=== PATIENT | female | born 1955 | race Two or more races ===

== ENCOUNTER → 2017-10-25 | Outpatient (CLI) | payer OTHER ==
[~2017-10-25] VITALS: Ht 152.4 cm; Wt 77.1 kg
== END | disposition home or self-care (01) ==
LOC: PPHC 10:35
DX: R09.81 Nasal congestion (principal)

== ENCOUNTER 2018-01-28 12:23 | Outpatient (CLI) | payer OTHER ==
[~2018-01-28] VITALS: Ht 157.5 cm; Wt 77.1 kg
== END 2018-01-28 12:45 | disposition home or self-care (01) ==
LOC: OFIC 805 12:23
DX: H72.2X1 Other marginal perforations of tympanic membrane, right ear (principal)

== ENCOUNTER 2018-02-10 11:30 | Outpatient (CLI) | payer OTHER ==
[~2018-02-10] VITALS: Ht 152.4 cm; Wt 77.1 kg
== END 2018-02-10 11:45 | disposition home or self-care (01) ==
LOC: OFIC 805 11:30
DX: H72.01 Central perforation of tympanic membrane, right ear (principal)

== ENCOUNTER 2018-02-14 08:09 | Outpatient (CLI) | payer OTHER ==
[~2018-02-14] VITALS: Ht 152.4 cm; Wt 77.1 kg
== END 2018-02-14 08:20 | disposition home or self-care (01) ==
LOC: OFIC 805 08:09
DX: H72.2X1 Other marginal perforations of tympanic membrane, right ear (principal); R51 Headache; R09.81 Nasal congestion

== ENCOUNTER 2018-10-13 08:39 | Outpatient (CLI) | payer OTHER | END 2018-10-13 16:24 | disposition home or self-care (01) | LOC: LAB 08:39 | DX: R77.1 Abnormality of globulin (principal); E03.8 Other specified hypothyroidism; N39.0 Urinary tract infection, site not specified ==

== ENCOUNTER → 2018-12-19 09:57 | Outpatient (CLI) | payer OTHER | END | disposition home or self-care (01) | LOC: LAB 09:57 | DX: C90.00 Multiple myeloma not having achieved remission (principal); D47.2 Monoclonal gammopathy ==

== ENCOUNTER 2019-01-15 09:16 | Outpatient (CLI) | payer OTHER | END 2019-01-15 14:50 | disposition home or self-care (01) | LOC: MAMO-SONO 09:16 | DX: D47.2 Monoclonal gammopathy (principal); Z12.31 Encounter for screening mammogram for malignant neoplasm of breast; N63.10 Unspecified lump in the right breast, unspecified quadrant; N63.20 Unspecified lump in the left breast, unspecified quadrant ==

== ENCOUNTER → 2019-01-22 | Outpatient (CLI) | payer OTHER | END | disposition home or self-care (01) | LOC: MRI 01-16 15:40 | DX: D47.2 Monoclonal gammopathy (principal); M25.562 Pain in left knee; M25.561 Pain in right knee | CPT/HCPCS: 73721 ==

== ENCOUNTER → 2019-01-23 | Outpatient (CLI) | payer OTHER | END | disposition home or self-care (01) | LOC: NUCLEAR 11:00 | DX: M81.0 Age-related osteoporosis without current pathological fracture (principal) ==

== ENCOUNTER 2019-01-29 08:24 | Outpatient (CLI) | payer OTHER | END 2019-01-29 11:21 | disposition home or self-care (01) | LOC: SONOGRAMA 08:24 | DX: D47.2 Monoclonal gammopathy (principal) ==

== ENCOUNTER 2019-01-31 11:05 | Outpatient (CLI) | payer OTHER | END 2019-01-31 11:06 | disposition home or self-care (01) | LOC: LAB 11:05 | DX: E03.8 Other specified hypothyroidism (principal); I10 Essential (primary) hypertension; Z12.11 Encounter for screening for malignant neoplasm of colon; E83.51 Hypocalcemia; E78.49 Other hyperlipidemia; E06.3 Autoimmune thyroiditis; D47.2 Monoclonal gammopathy; D50.8 Other iron deficiency anemias; D51.8 Other vitamin B12 deficiency anemias; K90.89 Other intestinal malabsorption; D51.1 Vitamin B12 deficiency anemia due to selective vitamin B12 malabsorption with proteinuria ==

== ENCOUNTER 2019-02-04 10:58 | Outpatient (CLI) | payer OTHER | END 2019-02-04 15:00 | disposition home or self-care (01) | LOC: LAB 10:58 | DX: E03.8 Other specified hypothyroidism (principal); I10 Essential (primary) hypertension; E78.49 Other hyperlipidemia; Z12.11 Encounter for screening for malignant neoplasm of colon; N30.00 Acute cystitis without hematuria; E83.51 Hypocalcemia; N95.8 Other specified menopausal and perimenopausal disorders; E06.3 Autoimmune thyroiditis ==

== ENCOUNTER 2019-02-06 10:47 | Outpatient (CLI) | payer OTHER | END 2019-02-06 15:00 | disposition home or self-care (01) | LOC: LAB 10:47 | DX: E03.8 Other specified hypothyroidism (principal); I10 Essential (primary) hypertension; E78.49 Other hyperlipidemia; Z12.11 Encounter for screening for malignant neoplasm of colon; N30.00 Acute cystitis without hematuria; E83.51 Hypocalcemia; N95.8 Other specified menopausal and perimenopausal disorders; E06.3 Autoimmune thyroiditis ==

== ENCOUNTER 2019-08-13 05:55 | Day surgery (SDC) | payer OTHER | END 2019-08-13 10:06 | disposition home or self-care (01) | LOC: AMB-ENDOS 05:55 | DX: D12.4 Benign neoplasm of descending colon (principal); K64.4 Residual hemorrhoidal skin tags; Z12.11 Encounter for screening for malignant neoplasm of colon ==

== ENCOUNTER → 2020-05-31 17:14 | Outpatient (CLI) | payer OTHER | END | disposition home or self-care (01) | LOC: PPH VACUNA 17:14 | DX: Z23 Encounter for immunization (principal) ==

== ENCOUNTER 2020-06-08 14:48 | Outpatient (CLI) | payer OTHER | END 2020-06-08 15:56 | disposition home or self-care (01) | LOC: MAMO-SONO 14:48 | PROVIDERS: ATTEND Obstetrics & Gynecology Maternal & Fetal Medicine | DX: Z12.31 Encounter for screening mammogram for malignant neoplasm of breast (principal) ==

== ENCOUNTER 2020-06-21 11:59 | Outpatient (CLI) | payer OTHER | END 2020-06-21 12:05 | disposition home or self-care (01) | LOC: RAD 11:59 | PROVIDERS: ATTEND Internal Medicine Sports Medicine | DX: M25.562 Pain in left knee (principal); M25.561 Pain in right knee ==

== ENCOUNTER 2020-08-22 08:47 | Outpatient (CLI) | payer OTHER | END 2020-08-22 14:46 | disposition home or self-care (01) | LOC: LAB 08:47 | PROVIDERS: ATTEND Obstetrics & Gynecology Maternal & Fetal Medicine | DX: E03.8 Other specified hypothyroidism (principal); E78.49 Other hyperlipidemia; E83.51 Hypocalcemia; R77.1 Abnormality of globulin; N39.0 Urinary tract infection, site not specified ==

== ENCOUNTER → 2020-11-28 14:23 | Outpatient (CLI) | payer OTHER | END | disposition home or self-care (01) | LOC: LAB 14:23 | DX: Z20.828 Contact with and (suspected) exposure to other viral communicable diseases (principal); Z11.59 Encounter for screening for other viral diseases ==

== ENCOUNTER → 2021-05-31 06:52 | Outpatient (CLI) | payer OTHER | END | disposition home or self-care (01) | LOC: LAB 06:52 | PROVIDERS: ATTEND Emergency Medicine | DX: Z00.00 Encounter for general adult medical examination without abnormal findings (principal) ==

== ENCOUNTER 2021-06-05 08:00 | Outpatient (CLI) | payer OTHER ==
[2021-06-26] MEDS ORDERED: TRAMADOL HCL50 MG PO (12:08)
[2021-07-07] MEDS ORDERED: TRAMADOL HCL50 MG PO (14:46)
== END 2021-06-05 08:30 | disposition home or self-care (01) ==
LOC: PPH VACUNA 08:00
PROVIDERS: ATTEND Emergency Medicine Pediatric Emergency Medicine
DX: Z23 Encounter for immunization (principal)

== ENCOUNTER 2021-07-17 12:27 | Outpatient (CLI) | payer OTHER ==
[~2021-07-17 12:27] MED LIST: TRAMADOL HCL50 MG PO
== END 2021-07-18 10:06 | disposition home or self-care (01) ==
LOC: RAD 12:27
DX: J20.0 Acute bronchitis due to Mycoplasma pneumoniae (principal)

== ENCOUNTER → 2021-07-21 10:59 | Outpatient (CLI) | payer OTHER | END | disposition home or self-care (01) | LOC: LAB 10:59 | PROVIDERS: ATTEND Obstetrics & Gynecology | DX: I10 Essential (primary) hypertension (principal); E78.49 Other hyperlipidemia; E03.8 Other specified hypothyroidism; N30.00 Acute cystitis without hematuria; E55.9 Vitamin D deficiency, unspecified; N95.8 Other specified menopausal and perimenopausal disorders; R97.8 Other abnormal tumor markers ==

== ENCOUNTER 2021-09-07 08:05 | Outpatient (CLI) | payer OTHER ==
[~2021-09-07 08:05] MED LIST changes: +KENALOG-1010 MG/1 ML IM; +SKELAXIN800 MG PO
== END 2021-09-07 08:10 | disposition home or self-care (01) ==
LOC: LAB 08:05
DX: Z20.822 Contact with and (suspected) exposure to COVID-19 (principal); Z20.828 Contact with and (suspected) exposure to other viral communicable diseases

== ENCOUNTER 2021-09-07 10:36 | Emergency (ER) | payer OTHER ==
[~2021-09-07] VITALS: Ht 157.5 cm; Wt 77.1 kg
== END 2021-09-07 11:20 | disposition home or self-care (01) ==
LOC: ER 10:36
DX: U07.1 COVID-19 (principal); B34.9 Viral infection, unspecified

== ENCOUNTER → 2022-01-04 | Outpatient (CLI) | payer OTHER | END | disposition home or self-care (01) | LOC: MAMO-SONO 10:26 → RAD 10:26 | PROVIDERS: ATTEND Orthopaedic Surgery | DX: Z12.31 Encounter for screening mammogram for malignant neoplasm of breast (principal); N60.11 Diffuse cystic mastopathy of right breast; N60.12 Diffuse cystic mastopathy of left breast; M25.561 Pain in right knee; M25.562 Pain in left knee ==

== ENCOUNTER 2022-01-05 12:52 | Outpatient (CLI) | payer OTHER | END 2022-01-05 14:52 | disposition home or self-care (01) | LOC: MRI 12:52 | PROVIDERS: ATTEND Orthopaedic Surgery | DX: M25.561 Pain in right knee (principal); S83.200A Bucket-handle tear of unspecified meniscus, current injury, right knee, initial encounter | CPT/HCPCS: 73721 ==

== ENCOUNTER 2022-04-06 06:25 | Day surgery (SDC) | payer OTHER ==
[~2022-04-06] VITALS: Ht 154.9 cm; Wt 77.1 kg
[2022-04-06] MEDS ORDERED: CEPHALEXIN500 MG PO (09:26)
[2022-04-06] MEDS ORDERED: OCUFLOX5 ML OTIC (09:26)
== END 2022-04-06 11:40 | disposition home or self-care (01) ==
LOC: CIR.AMB 06:25
PROVIDERS: ATTEND Otolaryngology Otology & Neurotology
DX: H72.821 Total perforations of tympanic membrane, right ear (principal); H90.11 Conductive hearing loss, unilateral, right ear, with unrestricted hearing on the contralateral side; Z88.2 Allergy status to sulfonamides; Z88.6 Allergy status to analgesic agent; Z20.822 Contact with and (suspected) exposure to COVID-19; Z86.16 Personal history of COVID-19

== ENCOUNTER → 2022-05-11 09:12 | Outpatient (CLI) | payer OTHER ==
[~2022-05-11 09:12] MED LIST changes: +CEPHALEXIN500 MG PO; +OCUFLOX5 ML OTIC
== END | disposition home or self-care (01) ==
LOC: LAB
PROVIDERS: ATTEND General Practice
DX: E55.9 Vitamin D deficiency, unspecified (principal); N39.0 Urinary tract infection, site not specified; R42 Dizziness and giddiness; R10.2 Pelvic and perineal pain

== ENCOUNTER 2022-05-30 10:28 | Outpatient (CLI) | payer OTHER | END 2022-05-30 10:33 | disposition home or self-care (01) | LOC: PPH VACUNA 10:28 | PROVIDERS: ATTEND Emergency Medicine Pediatric Emergency Medicine | DX: Z23 Encounter for immunization (principal) ==

== ENCOUNTER 2022-12-05 14:40 | Outpatient (CLI) | payer OTHER | END 2022-12-05 15:00 | disposition home or self-care (01) | LOC: RAD 14:40 | DX: M17.0 Bilateral primary osteoarthritis of knee (principal) ==

== ENCOUNTER 2022-12-20 08:41 | Outpatient (CLI) | payer OTHER | END 2022-12-20 10:25 | disposition home or self-care (01) | LOC: LAB 08:41 | DX: I11.9 Hypertensive heart disease without heart failure (principal); D68.9 Coagulation defect, unspecified ==

== ENCOUNTER 2022-12-21 09:38 | Outpatient (CLI) | payer OTHER | END 2022-12-21 09:46 | disposition home or self-care (01) | LOC: RAD 09:38 | PROVIDERS: ATTEND Orthopaedic Surgery Adult Reconstructive Orthopaedic Surgery | DX: I11.9 Hypertensive heart disease without heart failure (principal) ==

== ENCOUNTER 2023-04-25 10:06 | Outpatient (CLI) | payer OTHER | END 2023-04-25 10:30 | disposition home or self-care (01) | LOC: RAD 10:06 | PROVIDERS: ATTEND Orthopaedic Surgery Adult Reconstructive Orthopaedic Surgery | DX: Z96.651 Presence of right artificial knee joint (principal); M17.12 Unilateral primary osteoarthritis, left knee ==

== ENCOUNTER 2023-06-26 10:51 | Outpatient (CLI) | payer OTHER | END 2023-06-26 13:54 | disposition home or self-care (01) | LOC: SONOGRAMA 10:51 | DX: M72.2 Plantar fascial fibromatosis (principal) ==

== ENCOUNTER 2023-10-21 09:12 | Outpatient (CLI) | payer OTHER | END 2023-10-21 09:16 | disposition home or self-care (01) | LOC: SONOGRAMA 09:12 | PROVIDERS: ATTEND Specialist | DX: N60.11 Diffuse cystic mastopathy of right breast (principal); N60.12 Diffuse cystic mastopathy of left breast; N84.0 Polyp of corpus uteri; Z12.31 Encounter for screening mammogram for malignant neoplasm of breast ==

== ENCOUNTER 2024-11-10 12:04 | Outpatient (CLI) | payer OTHER | END 2024-11-10 12:22 | disposition home or self-care (01) | LOC: NUCLEAR 12:04 | PROVIDERS: ATTEND Obstetrics & Gynecology | DX: M81.0 Age-related osteoporosis without current pathological fracture (principal) ==

== ENCOUNTER 2025-08-25 09:31 | Outpatient (CLI) | payer OTHER | END 2025-08-25 09:33 | disposition home or self-care (01) | LOC: NUCLEAR 09:31 | PROVIDERS: ATTEND Internal Medicine | DX: I25.10 Atherosclerotic heart disease of native coronary artery without angina pectoris (principal) ==

== ENCOUNTER → 2025-08-25 | Outpatient (CLI) | payer OTHER | END | disposition home or self-care (01) | LOC: MAMO-SONO 08:45 | PROVIDERS: ATTEND Internal Medicine | DX: E04.1 Nontoxic single thyroid nodule (principal); N63.0 Unspecified lump in unspecified breast; Z12.31 Encounter for screening mammogram for malignant neoplasm of breast; I70.0 Atherosclerosis of aorta; J45.909 Unspecified asthma, uncomplicated ==